=== PATIENT | female | born 1940 ===

== ENCOUNTER 2018-04-10 09:31 | Outpatient (CLI) | payer MEDICARE, MEDICAID ==
--- NOTE | 2018-04-10 21:02 | RAD ---
RIGHT KNEE FOUR VIEWS: 04/10/18 The bones are osteoporotic which might mask subtle fractures. No gross fractures were identified. The re are severe degenerative changes in the lateral compartment with narrowing of the joint space, oste ophytes, and also significant patellofemoral joint arthritis. A large joint effusion is present. Cindy riosclerotic change is seen in the distal SFA and popliteal vessels, as well as the trifurcation. IMPRESSION: 1. Significant degenerative changes, especially laterally. 2. Large joint effusion. POS: HOME
== END 2018-04-10 09:32 | disposition home or self-care (01) ==
LOC: BURRAD 09:31
PROVIDERS: ATTEND Family Medicine
DX: M25.561 Pain in right knee (principal); M17.11 Unilateral primary osteoarthritis, right knee; M25.461 Effusion, right knee